=== PATIENT | male | born 1990 | race Caucasian/White ===

== ENCOUNTER 2019-12-15 05:10 | Emergency (ER) | payer MEDICAID ==
[~2019-12-15] VITALS: Ht 167.6 cm; Wt 81.0 kg
[2019-12-15 05:14] VITALS: BP 142/81
--- NOTE | 2019-12-15 05:19 | NUR ---
PT AMBULATED TO ER BED 04
--- NOTE | 2019-12-15 05:25 | NUR ---
PT 29 Y/O MALE BIB [facility]END FOR C/O BILATERAL FLANK PAIN 04/25 X 3 DAYS. PT STATES HE ALSO HAS MULTIPLE SORES ON PENIS SHAFT AND TIP. PT DENIES PAIN DURING URINATION OR DISCHARGE COMING OUT OF PENIS. PT AFEBRILE. PT DENIES N/V/D. RESPIRATIONS ARE EVEN AND UNLABORED. SKIN IS WARM AND DRY TO TOUCH. PT RESTING IN BED. GIRLFRIEND AT BEDSIDE. MEDHX: NONE ALLERGIES: NKA
--- NOTE | 2019-12-15 06:30 | NUR ---
PT RESTING IN BED AAO X4. RESPONDS TO VERBAL STIMULI. RESPIRATIONS ARE EVEN AND UNLABORED. SKIN IS WARM AND DRY TO TOUCH. GIRLFRIEND AT BED SIDE. BED LOCKED AND IN LOWEST POSITION.
--- NOTE | 2019-12-15 07:05 | NUR ---
REPORT GIVEN TO PATTIE REGALADO BEDSIDE. CONTINUATION OF CARE.
--- NOTE | 2019-12-15 07:27 | NUR ---
Dr. Cano is evaluating the patient at bedside.
[2019-12-15 07:56] VITALS: BP 114/77
--- NOTE | 2019-12-15 08:00 | NUR ---
Stable VSS Afebrile Denies pain MD has reassessed and Dc'd home To exit
== END 2019-12-15 08:00 | disposition home or self-care (01) ==
LOC: MED 05:10
DX: A60.00 Herpesviral infection of urogenital system, unspecified (principal); R03.0 Elevated blood-pressure reading, without diagnosis of hypertension
CPT/HCPCS: 81002; 99283; 99284